=== PATIENT | female | born 2000 | race Hispanic/Latino ===

== ENCOUNTER 2021-08-29 05:54 | Day surgery (SDC) | payer OTHER ==
[2021-08-22 13:28] LABS: BASOPHILS % (AUTO) 0.7 % (0.0-5.0); EOSINOPHILS % (AUTO) 1.1 % (0.0-8.0); HEMATOCRIT 42.4 % (36-48); LYMPHOCYTES % (AUTO) 24.6 % (21.0-51.0); MEAN CORPUSCULAR HEMOGLOBIN 30.1 pg (27.0-33.0); MEAN CORPUSCULAR HGB CONC 33.3 g/dL (32.0-36.0); MEAN CORPUSCULAR VOLUME 90.4 fL (80-100); MONOCYTES % (AUTO) 4.9 % (3.0-13.0); NEUTROPHILS % (AUTO) 68.4 % (40.0-77.0); PLATELET COUNT (AUTO) 232 K/uL (130-400); RED BLOOD CELL COUNT(AUTO) 4.69 MIL/uL (4.00-5.50); WHITE BLOOD COUNT (AUTO) 7.2 K/uL (4.8-10.8)
[2021-08-22 13:30] LABS: CREATININE 0.7 mg/dL (0.5-1.5); POTASSIUM 3.8 mmol/L (3.5-5.1)
[2021-08-22 13:32] LABS: INR 0.99 (0.85-1.15); PROTHROMBIN TIME 10.8 SEC (9.6-11.6)
[2021-08-22 13:33] LABS: PARTIAL THROMBOPLASTIN TIME 30.5 SEC (26.3-35.5)
[2021-08-27 11:07] VITALS: BP 117/68
[~2021-08-29] VITALS: Ht 162.6 cm; Wt 73.4 kg
[2021-08-29] VITALS (19 sets, daily range): BP systolic 106–130; BP diastolic 54–80
[2021-08-29] MEDS ORDERED: LACTATED RINGERS 1000ML 1,000 ML IV ONE (06:49)
[2021-08-29] MEDS ORDERED: BACITRACIN 28.4 GM OINT TP ONE (06:57)
[2021-08-29] MEDS ORDERED: OXYMETAZOLINE HCL SPRAY 15 ML BOTTLE ONE ×2 (06:57→08:54)
[2021-08-29] MEDS ORDERED: LIDOCAINE 1%-EPI 1:100,000 20 ML VIAL IJ ONE (06:57)
[2021-08-29] MEDS: CEFAZOLIN SODIUM 1 GM VIAL IVP SCH ×2 (07:00→08:00)
[2021-08-29] MEDS ORDERED: MIDAZOLAM HCL 1 MG/ML 2ML VIAL ONE (07:40)
[2021-08-29] MEDS ORDERED: DEXAMETHASONE SOD PHOSPHATE 10MG/ML 1ML VIAL ONE ×2 (07:40→08:12)
[2021-08-29] MEDS ORDERED: ONDANSETRON 4MG INJ ONE (07:40)
[2021-08-29] MEDS ORDERED: SUCCINYLCHOLINE CHLORIDE 20 MG/ML 10 ML VIAL ONE (07:40)
[2021-08-29] MEDS ORDERED: GLYCOPYRROLATE 1 MG/5 ML SYRINGE ONE (07:41)
[2021-08-29] MEDS ORDERED: FENTANYL CITRATE PF 50 MCG/1 ML 2ML VIAL ONE (07:41)
[2021-08-29] MEDS ORDERED: NEOSTIGMINE 5MG/5ML SYR IV ONE (07:41)
[2021-08-29] MEDS ORDERED: ROCURONIUM 10MG/1ML SYR 10 MG/ML ML ONE ×2 (07:41→11:08)
[2021-08-29] MEDS ORDERED: PROPOFOL 10 MG/ML 20ML VIAL IV ONE (07:41)
[2021-08-29] MEDS ORDERED: METOCLOPRAMIDE 10 MG/2 ML VIAL ONE (08:11)
[2021-08-29] MEDS ORDERED: PHENYLEPHRINE HCL 10 MG/ML 1ML VIAL IV ONE (08:56)
[2021-08-29] MEDS ORDERED: MEPERIDINE-PF 25 MG/ML SYG ONE ×2 (11:48→12:38)
== END 2021-08-29 13:50 | disposition home or self-care (01) ==
LOC: DAH 05:54
PROVIDERS: ATTEND Otolaryngology Plastic Surgery within the Head & Neck
DX: J34.2 Deviated nasal septum (principal); J34.3 Hypertrophy of nasal turbinates; J34.89 Other specified disorders of nose and nasal sinuses; Z79.01 Long term (current) use of anticoagulants
CPT/HCPCS: 80048; 84703; 85025; 85610; 85730; 87426; 36415; 30420; 30930; J7030; J7120; J3010; J0690; J3490 ×2; J1100 ×2; J2710; J0330; J2250; J2704; J2405; J2175 ×2; J2765; J2370; A4930; A4215; A4223; A4222; A4221; A4663; A4600